=== PATIENT | female | born 1980 | race Caucasian/White ===

== ENCOUNTER 2022-07-23 12:46 | Outpatient (CLI) | payer OTHER, MEDICAID, SELFPAY | END 2022-07-23 12:47 | disposition home or self-care (01) | PROVIDERS: PCP Physician Assistant; Visit Provider Physician Assistant | DX: R01.1 Cardiac murmur, unspecified (principal); I07.1 Rheumatic tricuspid insufficiency; I35.1 Nonrheumatic aortic (valve) insufficiency | CPT/HCPCS: 93306 ==